=== PATIENT | male | born 1990 | race Caucasian/White ===

== ENCOUNTER 2017-09-11 06:18 | Day surgery (SDC) | payer BC ==
[2017-09-10 10:07] VITALS: BMI 41.8
--- NOTE | 2017-09-11 08:40 | RAD ---
KUB: History: Renal calculi. Comparison: None. FINDINGS: Calcifications overlie both the kidneys. A left ureteral stent is in place. I do not see any definiti ve left ureteral calculi. There is a calcification overlying the right L4 transverse process, probabl y within the proximal right ureter. IMPRESSION: Bilateral calculi as discussed above. POS: [facility]
[2017-09-11 08:41] LABS: Hemoglobin 10.9 g/dL (14.0-18.0); Mean Corpuscular HGB CONC 31.7 g/dL (32.0-36.0); Mean Corpuscular Hemoglobin 27.7 pg (27.0-31.0); Mean Corpuscular Volume 87.5 fl (80.0-94.0); Mean Platelet Volume 6.7 fL (7.4-10.4); Platelet Count 382 thou/uL (130-400); RBC Distribution Width 14.6 % (11.5-14.5); Red Blood Cell (RBC) Count 3.94 mill/uL (4.70-6.10)
[2017-09-11 08:45] LABS: Platelet Count 382 thou/uL (130-400)
[2017-09-11 09:00] LABS: Anion Gap 11 mmol/L (10-20); BUN (Urea Nitrogen) 17 mg/dL (8.9-20.6); Calc. Creatinine Clearance 276 mL/min (70-130); Calcium 9.5 mg/dL (7.8-10.44); Carbon Dioxide 33 mmol/L (22-29); Chloride 100 mmol/L (98-107); Estimated GFR-MDRD Greater than 90; Glucose 140 mg/dL (70-105); Potassium 3.1 mmol/L (3.5-5.1); Sodium 141 mmol/L (136-145)
[2017-09-11 09:08] LABS: INR-International Normal Ratio 0.9; PTT 29.7 SEC (22.9-36.1); Prothrombin Time 12.4 SEC (12.0-14.7)
[2017-09-11] MEDS ORDERED: Levofloxacin 500 mg/D5W 100 ml Premix Bag ONE (09:15)
[2017-09-11] MEDS ORDERED: Midazolam HCl 2 mg/2 ml Vial ONE (09:31)
[2017-09-11] MEDS ORDERED: Fentanyl 100 MCG/2 ML VIAL ONE (09:31)
[2017-09-11] MEDS ORDERED: Glycopyrrolate 0.2 MG/ML 5 ML SYRINGE ONE (16:18)
[2017-09-11] MEDS ORDERED: Ondansetron HCl/PF 4 MG/2 ML Vial ONE (16:18)
[2017-09-11] MEDS ORDERED: ePHEDrine/0.9% NaCl/PF SYRINGE 50 mg/10 ml ONE (16:18)
[2017-09-11] MEDS ORDERED: Dexamethasone 20 MG/5 ML VIAL ONE (16:18)
[2017-09-11] MEDS ORDERED: Metoclopramide HCl 10 MG/2 ML VIAL ONE (16:18)
[2017-09-11] MEDS ORDERED: diphenhydrAMINE 50 MG/ML VIAL ONE (16:18)
[2017-09-11] MEDS ORDERED: Propofol 200 MG/20 ML VIAL ONE (16:18)
[2017-09-11] MEDS ORDERED: Lidocaine 1% PF 5 ML VIAL ONE (16:18)
--- NOTE | 2017-09-12 12:22 | OP ---
DATE OF SURGERY: 09/11/2017 PREOPERATIVE DIAGNOSES: Left renal stones, left proximal ureteral stone. POSTOPERATIVE DIAGNOSES: Left renal stones, left proximal ureteral stone. PROCEDURE PERFORMED: Left ESWL. SURGEON: Dr. Reynaldo Madsen. ANESTHETIC: General. ESTIMATED BLOOD LOSS: Not recorded. FINDINGS: On his KUB, he had a large left renal pelvic stone 2 smaller stones and some faint calcifi cations near the coil of the stent within the renal pelvis. We did not see a stone in the proximal u reter, I think that stone most likely got pushed back up into the kidney. We used a total of 2500 sh ocks, not treating the large stone, but treating all the 2 other stones that are easily seen as well as 500 shocks at a faint area of calcification that was just in the region of the coil. All these ar eas seen to fragment quite nicely and spread out. At the end of the procedure, the stent was left in . OPERATIVE TECHNIQUE: After obtaining written and verbal consent from the patient, after documenting normal preoperative blood work and after receiving IV antibiotics, he was taken to the operating suit e. He was placed in the supine position on the treatment table. PlexiPulses were not placed on his lower extremities and he has problems with venous stasis ulcers and he had PlexiPulses when he was in the hospital a week ago with sepsis and he had problems with bruising on his legs from them. He was given a general anesthetic and oral intubation. He was coupled to the lithotripsy unit. The stones were easily seen. We treated the stones that were just above the large stone first and then the sto ne just below it second and then a faint calcification in the loop of the coil of the proximal end of the stent flashed. All these areas did appear to fragment well. A total of 2500 shocks were given. At this point, the patient was awakened, extubated, and taken by stretcher to the recovery room.
== END 2017-09-11 12:15 | disposition home or self-care (01) ==
LOC: SDC 06:18
PROVIDERS: ATTEND Urology
PROC: 0TF4XZZ Fragmentation in Left Kidney Pelvis, External Approach (ICD-10-PCS; principal; 2017-09-11)
DX: N20.0 Calculus of kidney (principal); N20.1 Calculus of ureter; E11.9 Type 2 diabetes mellitus without complications; E03.9 Hypothyroidism, unspecified; I10 Essential (primary) hypertension; G43.909 Migraine, unspecified, not intractable, without status migrainosus; F32.9 Major depressive disorder, single episode, unspecified; F41.9 Anxiety disorder, unspecified; E66.9 Obesity, unspecified; Z68.41 Body mass index [BMI] 40.0-44.9, adult; Z79.84 Long term (current) use of oral hypoglycemic drugs; Z79.899 Other long term (current) drug therapy
CPT/HCPCS: 74018; 80048; 85027; 85576; 85610; 85730; J0131; J1100; J1200; J1956; J2001; J2250; J2405; J2704; J2765; J3010

== ENCOUNTER 2017-09-25 05:46 | Day surgery (SDC) | payer BC, OTHER ==
[2017-09-24 10:52] VITALS: BMI 41.8
[2017-09-25] MEDS ORDERED: Midazolam HCl 2 mg/2 ml Vial ONE (06:34)
[2017-09-25] MEDS ORDERED: HYDROmorphone 0.5 MG/0.5 ML SYRINGE ONE (06:35)
[2017-09-25 07:15] LABS: Anion Gap 12 mmol/L (10-20); BUN (Urea Nitrogen) 16 mg/dL (8.9-20.6); Calc. Creatinine Clearance 290 mL/min (70-130); Calcium 9.6 mg/dL (7.8-10.44); Carbon Dioxide 31 mmol/L (22-29); Chloride 101 mmol/L (98-107); Estimated GFR-MDRD Greater than 90; Glucose 144 mg/dL (70-105); Potassium 3.3 mmol/L (3.5-5.1); Sodium 141 mmol/L (136-145)
[2017-09-25] MEDS ORDERED: Iothalamate Meglumine 60% 50 ML VIAL FS ONE (07:57)
[2017-09-25] MEDS ORDERED: Levofloxacin 500 mg/D5W 100 ml Premix Bag ONE (07:57)
--- NOTE | 2017-09-25 08:39 | RAD ---
KUB: History: Pre op. Renal calculus. Comparison: 09-11-17 FINDINGS: Bilateral renal calculi are seen. A left ureteral stent is in place. On the previous 09-11-17 study th ere was a calculus which was located overlying the right L4 transverse process. It appears to have pa ssed back into the renal collecting system. IMPRESSION: Bilateral renal calculi. The calculus which appeared to be in the proximal right ureter now appears t o be back in the mid portion of the right renal pelvis. POS: [facility]
--- NOTE | 2017-09-25 10:41 | OP ---
DATE OF PROCEDURE: 09/25/2017 PREOPERATIVE DIAGNOSIS: Left renal stone. POSTOPERATIVE DIAGNOSIS: Left renal stone. PROCEDURES PERFORMED: Left extracorporeal shock wave lithotripsy, cystoscopy, and exchange of left s tent, dilatation of urethral meatus. SURGEON: Reynaldo Madsen M.D. ANESTHETIC: General. ESTIMATED BLOOD LOSS: Not recorded. FINDINGS: Stone was large probably about 2 cm, treated with 2500 shocks at kV level 6. We treated h vel of it, appeared to fragment well. We treated three smaller stones couple of weeks ago. They bot h broke up well and this one also for the size that was broke up well. He will need another treatmen t and the stent was replaced with a 4.8 x 26 cm. No string attached. OPERATIVE TECHNIQUE: Obtain written verbal consent from the patient, he was taken to the operating s uite. He was placed in supine position on the treatment table. PlexiPulses were not placed on his l ower extremities because of bruising from his [place]'s disease. He was given a general anesthetic a nd oral intubation. He was coupled to the lithotripsy unit and the stone was placed in treatment foc al point. He also did receive 500 of Levaquin. He also was undergoing stent exchange. Lithotripsy was begun at a low kV and brought up relatively quickly to a kV of 6. A pause was given after a coup le 100 shocks, it was after that we increased the power. The stone stayed in the treatment focal poi nt. The majority of the time it appeared to fragment well. We treated the medial half of it. At th e end of this procedure, was placed in the dorsal lithotomy position and sterilely prepped and draped . He did have some urethral stenosis and we had to gently dilate the meatus. This was done up to 24 [place] with Evert sounds. We then passed a 22-Panamanian cystoscope with a 30-degree lens and video camera and monitored through the male urethra into the bladder, filled and emptied the bladder coupl e of times, grasped the distal end of the double-J stent brought out through and removed it, passed t he Pollack up the left side, injected contrast to fill out the collecting system and ureter was not d ilated, fed a guidewire up into this region, took the Pollack out over the guidewire in place, the st ent over the guidewire, pushing up into place with a pusher, so its proximal end coiled in the upper pole of calyceal system, lower end coiled in the bladder when the wire was removed. The patient at t his point was taken out of the dorsal lithotomy position, awakened, extubated, and taken by stretcher to the recovery room.
[2017-09-25] MEDS ORDERED: PROPOFOL 200 MG/20 ML VIAL ONE (14:46)
[2017-09-25] MEDS ORDERED: Glycopyrrolate 0.2 MG/ML 5 ML SYRINGE ONE (14:46)
[2017-09-25] MEDS ORDERED: diphenhydrAMINE 50 MG/ML VIAL ONE (14:46)
[2017-09-25] MEDS ORDERED: Dexamethasone 20 MG/5 ML VIAL ONE (14:46)
[2017-09-25] MEDS ORDERED: Ondansetron HCl/PF 4 MG/2 ML Vial ONE (14:46)
[2017-09-25] MEDS ORDERED: ePHEDrine/0.9% NaCl/PF SYRINGE 50 mg/10 ml ONE (14:46)
[2017-09-25] MEDS ORDERED: Lidocaine 1% PF 5 ML VIAL ONE (14:46)
--- NOTE | 2017-09-26 17:39 | EKG ---
Test Reason : PREOP Blood Pressure : / mmHG Vent. Rate : 073 BPM Atrial Rate : 073 BPM P-R Int : 140 ms QRS Dur : 090 ms QT Int : 440 ms P-R-T Axes : 017 035 044 degrees QTc Int : 484 ms Normal sinus rhythm Prolonged QT Abnormal ECG No previous ECGs available Confirmed by DR. Xavier DOUGLAS ([id number]) on 09/26/2017 5:39:00 PM Referred By: AILIN Confirmed By:DR. Xavier DOUGLAS
== END 2017-09-25 11:30 | disposition home or self-care (01) ==
LOC: SDC 05:46
PROVIDERS: ATTEND Urology
DX: N20.0 Calculus of kidney (principal); Z79.2 Long term (current) use of antibiotics; Z79.84 Long term (current) use of oral hypoglycemic drugs; Z79.899 Other long term (current) drug therapy; Z98.890 Other specified postprocedural states
CPT/HCPCS: 36415; 74018; 80048; 93005; 93010; J1100; J1170; J1200; J1956; J2001; J2250; J2405; J2704; Q9961